=== PATIENT | female | born 1950 | race Caucasian/White ===

== ENCOUNTER 2017-01-16 11:37 | Emergency (ER) | payer MEDICARE ==
[~2017-01-16] VITALS: Ht 162.6 cm; Wt 61.2 kg
[~2017-01-16 11:37] MED LIST: ASPIRIN CHILDRE81 M1 PO; NEXIUM20 MG PO; PHENERGAN25 M3 PO; PRILOSEC20 M1 PO
--- NOTE | 2017-01-16 11:56 | Emergency Room Report ---
History of Present Illness Time Seen by MD Rodarte Presenting Problem in Triage Pt arrived:Walked Presenting Problem:PT WITH HISTORY OF HERNIA AND HAS BEEN HAVING ONGOING ISSUES WITH SINCE 2012; SAW HER PCP THIS WEEK AND WAS ADVISED TO BEGIN A NEW PPI MED; PT IS STATING SHE IS NERVOUS AND SOA AND DOESN' KNOW IF ITS THE HERNIA MAKING HER WEAK OR IF WORSE; CARDIAC ISSUES. 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 N Clinical Suspician of Infection? N Mental Status: 1 - Regular (Normal Baseline) Sepsis Risk:Low Sepsis Risk Have you (or family members/close friends) recently traveled outside the [place]? N If Yes, where/when: Have you had exposure to infectious disease within the past month? TB? Other? Specify: Comment The patient complains of her hiatal hernia bothering her. She has a long history of problems with it. She says it has been bothering her a lot for the past 2 weeks, almost continually. She has discomfort in her lower sternal area. It is exacerbated after eating, approximately 2 hours after she eats. This morning, she says that she was shaky and short of air with her symptoms. Symptoms are also exacerbated by standing and moving around, improved with rest. She does not have abdominal pain. She does have nausea, but no vomiting. She says when the pain gets severe it makes her feel like she is going to pass out. She saw her PCP couple of days ago and was prescribed Protonix. She has had a couple of doses. She has been taking Tums but not in the past week and a half. She tried Gaviscon as well. None of that seemed to help. She says she was admitted for the same symptoms in June 2016. She has had an EGD, but does not remember how many years ago it was. She says she's been diagnosed with H. pylori and was treated for that. ALLERGIES Coded Allergies: No Known Allergies (01/16/17) Home Medications Reported Medications Aspirin 81 MG PO DAILY PROMETHAZINE HCL (Phenergan 25MG Tab (Geq)) 25 MG PO NEEDED Esomeprazole Magnesium (Nexium) 20 MG PO DAILY History Medical History General CAD? No Angina: No PR: No Hypertension? No Hyperlipidemia? No CHF? No DVT? No PE? No COPD? No Asthma? No Anemia? No GERD? No Gastric ulcers? No GI Bleed? No Hernia? No Thyroid Problems? No Hypothyroidism? No CVA? No Seizures? No Diabetes? No Renal Insuffiency? No End Stage Renal Disease? No UTI? No Stones? No BPH? No GB Disease: Yes Nephritic Syndrome? No Asplenia? No Hepatitis? No Arthritis? No Migraines? No Cataracts? No Glaucoma? No MRSA? No HIV? No TB? No Anxiety? No Depression? No Cancer? No More? No Immunization Hx Ped.Immunizations UTD Yes DT/Tetanus Unknown Flu 2012-FSN Pneumonia Refuses Surgical Hx Previous Surgery?Y LAP RACHEL-2005 R EAR Family History Family Hx Diabetes No CAD No Hypertension No Hyperlipidemia No Cancer No TB No Social History Smoking Hx Smoker: Never Smoker Tobacco: No Type N/A Are you/the child exposed to second-hand smoke: No Alcohol Alcohol: No Additionial History Additional History Records reviewed. Admitted in June 2016 for the same symptoms. She had a workup including a Myoview stress test and echocardiogram which were negative. Dr. Hebert indicates that she has a suspected hiatal hernia. Her last CT scan of the abdomen was in 2012, no hiatal hernia seen at that time. No hiatal hernia seen on her chest x-ray in June. No record of EGD at this facility available on the medical record. Review of Systems All Other Systems Reviewed and Negative Constitutional denies fever, weakness Respiratory shortness of breath Cardiovascular chest pain Gastrointestinal denies abdominal pain, nausea, denies vomiting Physical Exam Vital Signs Vital Signs Date Time Temp Pulse Resp B/P Pulse O2 O2 Flow FiO2 Ox Delivery Rate 01/16 1341 98.0 83 18 165/91 99 01/16 1256 83 18 165/91 99 01/16 1145 98.0 83 18 160/100 99 General Appearance no apparent distress, Anxious Eye Exam - bilateral eye normal exam, bilateral eye PERRL, bilateral eye EOMI Ear, Nose, Throat hearing grossly normal, normal ENT inspection Neck normal inspection, non-tender, supple, full range of motion Respiratory Status Yes: trachea midline, chest symmetrical, non tender chest. No: respiratory distress. Lung Sounds bilateral: normal breath sounds, lungs clear. 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 No Results/Orders Laboratory Tests 01/16/17 1155: Sodium 140, Potassium 3.7, Chloride 103, Carbon Dioxide 28, BUN 13, Creatinine 1.0, Estimated Creat Clear 53, Estimated GFR (MDRD) 55 L, Glucose 92, Calcium 9.8, Total Bilirubin 2.1 H, AST 16, ALT 16, Alkaline Phosphatase 117 H, Creatine Kinase 62, CK-MB (CK-2) Rel Index 2.1, CK and CKMB Interp 1.3, Troponin I < 0.02, Total Protein 8.0, Albumin 4.2, Globulin 3.8 H, Albumin/Globulin Ratio 1.1, Amylase 53, Lipase 161, WBC 5.4, RBC 4.96, Hgb 14.5, Hct 42.3, MCV 85.1, RDW 12.2, Plt Count 323, MPV 7.3 L, Gran % 56.2, Gran # 3.0, Lymphocytes % 31.9, Monocytes % 8.6, Eosinophils % 2.3, Basophils % 1.0, Lymphocytes # 1.7, Monocytes # 0.5, Eosinophils # 0.1, Basophils # 0.1, PUBS MCHC 34.1, MCH 29.1 Current Medication Orders Sig/Juan Start time Last Medication Dose Route Stop Time Status Admin Famotidine 0 .STK-MED ONE 01/16 1258 DC IV Sodium Chloride 0 .STK-MED ONE 01/16 1257 DC IV Famotidine 20 MG ONCE ONE 01/16 1230 DC 01/16 IV 01/16 1231 1301 Sodium Chloride 8 ML ONCE ONE 01/16 1230 DC 01/16 IV 01/16 1231 1303 Sodium Chloride 10 ML PRN PRN 01/16 1200 DCD 01/16 IV 01/17 1148 1303 Orders Procedure Date/time Status ELECTROCARDIOGRAM REQUEST 01/16 1149 Active IV SALINE LOCK 01/16 114 Active URINALYSIS/COMPLETE 01/16 114 Active LIPASE 01/16 114 Complete CBC WITH AUTO DIFF 01/16 114 Complete CARDIAC ENZYMES 01/16 1149 Complete CHEM 12 PROFILE 01/16 1149 Complete AMYLASE 01/16 114 Complete 12 LEAD EKG-ACACIA (INITIAL) 01/16 UNK Active CM/EKG CM/EKG Comments EKG interpreted by Yovany Bone MD: Rhythm: sinus Rate: 69 Oxbow: normal Ectopy: none Conduction: normal ST Segment Changes: none T Wave Changes: none Q Waves: none No evidence of acute ischemia or injury Baseline wander present, but I consider the EKG adequate for accurate interpretation. Progress - 12:40 PM: The patient states symptoms have passed. Discussed records review and results. She now recalls that her EGD and a colonoscopy were done at [facility] in [place], she does not remember the year. she recalls that a hiatal hernia was diagnosed at that time as well as H. pylori. 12:44 PM: Discussed with Dr. Hebert. Discharge patient and have her follow up at 10 AM tomorrow at her scheduled appointment. No change in treatment at this time. Departure Departure Disposition DC Home or Self Care(routine) Clinical Impression Primary Impression: Chest pain Qualifiers: Chest pain type: precordial pain Qualified Code: R07.2 - Precordial pain Condition STABLE Referrals Tiburcio Hebert MD (Family) Patient Instructions DI for Atypical Chest Pain, DI for Hiatal Hernia Additional Instructions Continue current treatment. Keep your appointment with Dr. Hebert tomorrow at 10 AM. Additional instructions for CHEST PAIN: See your physician as soon as possible for further evaluation. Return immediately if worsening chest pain, vomiting, shortness of breath, fever, coughing of blood. ED Critical Care Critical Care No at 1450
--- OUTSIDE RECORDS SUMMARY | 2017-01-16 11:57 | External Medical Summary Rpt | CCD ---
Demographics Preferred Language Greenlandic Marital Status Unknown Yazidi Affiliation Unknown Race Unknown Ethnic Group Unknown Author Author , CANDACE MARIA Address Unknown Phone Immunization No patient found.
--- OUTSIDE RECORDS SUMMARY | 2017-01-16 11:57 | External Medical Summary Rpt | CCD ---
Author Author , CANDACE MARIA Address Unknown Phone [email or web address] Care Team Providers Care Millinery Salesperson Name Role Phone Tiburcio Hebert MD, Unavailable Unavailable Tiburcio Hebert MD Purpose Continuity of Care Document - 12-30-2012 through 2016 Problems Code Diagnosis DOS Provider Status 558.9 558.9 12-31-2012 [facility] IT NEC 787.01 787.01 12-31-2012 [place] NAUSEA WITH [facility] 787.91 787.91 12-31-2012 [place] DIARRHEA [facility] R07.9 CHEST PAIN, UNSPECIFIED Allergies, Adverse Reactions, Alerts Type Allergy to substance Drug Allergy Propensity to adverse reactions to food Adverse Reaction to Substance Substance Reaction Severity INGREDIENT: NO KNOWN Unknown Unknown - NO KNOWN DRUG ALLERGY No Known Drug Unknown Unknown Allergies - Nkda ORANGE JUICE (FOOD) BURNING SENSATION Unknown Medications Na ND Rx Da Fi Fi Am Da Di Ph RX Ph St me C No te ll ll ou ys ag ar # ys at rm s nt no ma ic us Or Da si cy ia de te s n re d SO 00 11 1 No DI 40 -1 UM 97 2- Lo 98 20 ng CH 30 13 er LO 9 RI Ac DE ti ve 0. 9% SO VICTORINO TI ON Sa 63 11 1 No li 80 -1 ne 70 2- Lo 10 20 ng Fl 07 13 er us 5 h Ac 10 ti ML ve Sy ri ng e ON 00 11 0 No DA 64 -1 NS 16 2- Lo ET 08 20 ng RO 02 13 er N 5 HC Ac L ti 4 ve MG /2 ML AL WV 00 11 0 No OM 64 -1 ET 11 2- Lo KAHN 49 20 ng ZI 53 13 er NE 5 Ac 25 ti ve MG /M L AM PU L Me 51 11 0 No tr 07 -1 on 90 2- Lo id 12 20 ng az 62 13 er ol 0 e Ac 50 ti 0M ve G Ta bl et WV 00 11 1 No OT 00 -1 ON 80 2- Lo IX 92 20 ng 35 13 er IV 5 Ac 40 ti ve MG AL Vital Signs 12-31-2012 16:30 Name Value Interpretat Reference Comment ion Range Body 98.4 [degF] Temperature BP 61 mm[Hg] Diastolic BP Systolic 123 mm[Hg] Heart 82 /min Rate/Pulse Respiratory 18 /min Rate 12-31-2012 16:00 Name Value Interpretat Reference Comment ion Range O2% 94 % 12-30-2012 23:58 Name Value Interpretat Reference Comment ion Range Height 162.56 cm Weight 63.957 kg Measured 12-30-2012 21:40 Name Value Interpretat Reference Comment ion Range Body 98 [degF] Temperature BP 87 mm[Hg] Diastolic BP Systolic 141 mm[Hg] Heart 108 /min Rate/Pulse O2% 97 % Respiratory 18 /min Rate Weight 00 [oz_av] Measured Results Labs Lab Lab Date Result Refere Interp Status Commen Order Detail nces retati t Range on BASIC METABOLIC PANEL (12-31-2012 06:10) Glucose 92 74-106 complet 013 mg/dL ed Bld-mCn 06:10 c BUN 14 7-18 complet Bld-mCn 013 mg/dL ed c 06:10 Creat 1.1 0.6-1.0 complet SerPl-m 013 mg/dL ed Cnc 06:10 ESTIMAT 54 50-200 complet ED 013 ML/MIN ed CREATIN 06:10 INE CLEARAN CE GFR 50 59- complet (ESTIMA 013 ML/MIN ed HARSH) 06:10 Sodium 12-31- 145 136-145 complet SerPl-s 013 mmoL/L ed Cnc 06:10 Potassi 4.1 3.5-5.1 complet um 013 mmoL/L ed SerPl-s 06:10 Cnc Chlorid 107 98-107 complet e 013 mmoL/L ed SerPl-s 06:10 Cnc CO2 28 21.0-32 complet SerPl-s 013 mmoL/L .0 ed Cnc 06:10 Calcium 12-31- 8.4 8.5-10. complet 013 mg/dL 1 ed SerPl-m 06:10 Cnc CBC with AUTO DIFF (12-31-2012 06:10) WBC # 11-13-2 4.0 4.8-10. complet Bld 013 K/MM3 8 ed Auto 06:10 RBC # 11-13-2 4.60 4.2-5.4 complet Bld 013 M/mm3 ed Auto 06:10 Hgb 11-13-2 13.3 12.2-16 complet Bld-mCn 013 g/dL .2 ed c 06:10 Hct Fr 11-13-2 39.8 % 37.0-47 complet Bld 013 .0 ed 06:10 MCV RBC 11-13-2 86.5 fl 82.2-97 complet 013 .8 ed 06:10 MCH RBC 11-13-2 28.8 pg 27-31.2 complet Qn 013 ed Auto 06:10 MEAN 11-13-2 33.3 31.8-35 complet CORPUSC 013 g/dl .4 ed ULAR 06:10 HGB CONC RDW RBC 11-13-2 14.1 % 11.5-17 complet Auto 013 .5 ed 06:10 Platele 11-13-2 274 142-424 complet t Bld 013 K/mm3 ed Ql 06:10 Manual MEAN 11-13-2 7.6 fl 7.4-10. complet PLATELE 013 4 ed T 06:10 VOLUME Granulo 11-13-2 68.7 % 37.0-80 complet cytes 013 .0 ed Fr Bld 06:10 Auto LYMPH % 11-13-2 20.6 % 10-50.0 complet 013 ed 06:10 Monocyt 11-13-2 10.1 % 1.7-9.3 complet es Fr 013 ed Bld 06:10 Auto Eosinop 11-13-2 0.3 % 0.1-12. complet hil Fr 013 0 ed Bld 06:10 Auto Basophi 11-13-2 0.3 % 0.1-2.0 complet ls Fr 013 ed Bld 06:10 Auto Granulo 11-13-2 2.8 1.8-7.8 complet cytes # 013 K/mm3 ed Bld 06:10 Auto Lymphoc 11-13-2 0.8 0.7-4.5 complet ytes Fr 013 K/mm3 ed Bld 06:10 Auto Monocyt 11-13-2 0.4 0.1-1.0 complet es # 013 K/mm3 ed Bld 06:10 Auto Eosinop 11-13-2 0.0 0.0-0.4 complet hil # 013 K/mm3 ed Bld 06:10 Auto Basophi 11-13-2 0.0 0-0.2 complet ls # 013 K/MM3 ed Bld 06:10 Auto COMPREHENSIVE METABOLIC PANEL (12-30-2012 21:55) Glucose 11-12-2 169 74-106 complet 013 mg/dL ed Bld-mCn 21:55 c BUN 11-12-2 15 7-18 complet Bld-mCn 013 mg/dL ed c 21:55 Creat 11-12-2 1.2 0.6-1.0 complet SerPl-m 013 mg/dL ed Cnc 21:55 ESTIMAT 11-12-2 50 50-200 complet ED 013 ML/MIN ed CREATIN 21:55 INE CLEARAN CE GFR -12-2 46 59- complet (ESTIMA 013 ML/MIN ed HARSH) 21:55 Sodium 11-12-2 139 136-145 complet SerPl-s 013 mmoL/L ed Cnc 21:55 Potassi 11-12-2 3.9 3.5-5.1 complet um 013 mmoL/L ed SerPl-s 21:55 Cnc Chlorid 11-12-2 103 98-107 complet e 013 mmoL/L ed SerPl-s 21:55 Cnc CO2 11-12-2 24 21.0-32 complet SerPl-s 013 mmoL/L .0 ed Cnc 21:55 Calcium 11-12-2 9.1 8.5-10. complet 013 mg/dL 1 ed SerPl-m 21:55 Cnc Prot 11-12-2 8.1 6.4-8.2 complet SerPl-m 013 gm/dL ed Cnc 21:55 Albumin 11-12-2 4.1 3.4-5.0 complet 013 gm/dL ed SerPl-m 21:55 Cnc Globuli 11-12-2 4.0 1.3-3.2 complet n 013 gm/dL ed Ser-mCn 21:55 c Albumin 11-12-2 1.0 UNK 1.1-1.8 complet /Glob 013 ed SerPl-m 21:55 Rto Bilirub 11-12-2 1.9 0.2-1.0 complet 013 mg/dL ed SerPl-m 21:55 Cnc AST 11-12-2 32 U/L 15-37 complet SerPl-c 013 ed Cnc 21:55 ALT 11-12-2 50 U/L 30-65 complet SerPl-c 013 ed Cnc 21:55 ALP 11-12-2 159 U/L 50-136 complet SerPl-c 013 ed Cnc 21:55 Amylase SerPl-cCnc (12-30-2012 21:55) Amylase 11-12-2 44 U/L 25-115 complet 013 ed SerPl-c 21:55 Cnc LIPASE (12-30-2012 21:55) LIPASE 11-12-2 57 U/L 73-393 complet 013 ed 21:55 CBC with AUTO DIFF (12-30-2012 21:55) WBC # 11-12-2 6.6 4.8-10. complet Bld 013 K/MM3 8 ed Auto 21:55 RBC # 11-12-2 5.16 4.2-5.4 complet Bld 013 M/mm3 ed Auto 21:55 Hgb 11-12-2 15.4 12.2-16 complet Bld-mCn 013 g/dL .2 ed c 21:55 Hct Fr 11-12-2 44.8 % 37.0-47 complet Bld 013 .0 ed 21:55 MCV RBC 11-12-2 86.9 fl 82.2-97 complet 013 .8 ed 21:55 MCH RBC 11-12-2 29.8 pg 27-31.2 complet Qn 013 ed Auto 21:55 MEAN 11-12-2 34.2 31.8-35 complet CORPUSC 013 g/dl .4 ed ULAR 21:55 HGB CONC RDW RBC 11-12-2 14.4 % 11.5-17 complet Auto 013 .5 ed 21:55 Platele 11-12-2 295 142-424 complet t Bld 013 K/mm3 ed Ql 21:55 Manual MEAN 11-12-2 7.7 fl 7.4-10. complet PLATELE 013 4 ed T 21:55 VOLUME Granulo 11-12-2 88.8 % 37.0-80 complet cytes 013 .0 ed Fr Bld 21:55 Auto LYMPH % 11-12-2 6.4 % 10-50.0 complet 013 ed 21:55 Monocyt 11-12-2 3.9 % 1.7-9.3 complet es Fr 013 ed Bld 21:55 Auto Eosinop 11-12-2 0.7 % 0.1-12. complet hil Fr 013 0 ed Bld 21:55 Auto Basophi 11-12-2 0.2 % 0.1-2.0 complet ls Fr 013 ed Bld 21:55 Auto Granulo 11-12-2 5.9 1.8-7.8 complet cytes # 013 K/mm3 ed Bld 21:55 Auto Lymphoc 11-12-2 0.4 0.7-4.5 complet ytes Fr 013 K/mm3 ed Bld 21:55 Auto Monocyt 11-12-2 0.3 0.1-1.0 complet es # 013 K/mm3 ed Bld 21:55 Auto Eosinop 11-12-2 0.1 0.0-0.4 complet hil # 013 K/mm3 ed Bld 21:55 Auto Basophi 11-12-2 0.0 0-0.2 complet ls # 013 K/MM3 ed Bld 21:55 Auto Encounters Encounter Start End Date Code Location Performer Type Date Inpatient IMP Patrice Hebert MD ([place]) 3 22:08 3 00:01 [facility]
--- OUTSIDE RECORDS SUMMARY | 2017-01-16 11:57 | External Medical Summary Rpt | CCD ---
Author Author , CANDACE MARIA Address Unknown Phone [email or web address] Care Team Providers Care Conveyor Monitor Name Role Phone Tiburcio Hebert MD, Unavailable Unavailable Tiburcio Hebert MD Purpose Continuity of Care Document - 12-30-2012 through 2016 Problems Code Diagnosis DOS Provider Status 558.9 558.9 12-31-2012 [facility] IT NEC 787.01 787.01 12-31-2012 [place] NAUSEA WITH [facility] 787.91 787.91 12-31-2012 [place] DIARRHEA [facility] R07.9 CHEST PAIN, UNSPECIFIED Allergies, Adverse Reactions, [...] ti 4 ve MG /2 ML AL SC 00 11 0 No OM 64 -1 ET 11 2- Lo KAHN 49 20 ng ZI 53 13 er NE 5 Ac 25 ti ve MG /M L AM PU L Me 51 11 0 No tr 07 -1 on 90 2- Lo id 12 20 ng az 62 13 er ol 0 e Ac 50 ti 0M ve G Ta bl et SC 00 11 1 No OT 00 -1 [...] Hebert MD ([place]) 3 22:08 3 00:01 [facility]
--- OUTSIDE RECORDS SUMMARY | 2017-01-16 11:57 | External Medical Summary Rpt | CCD ---
Author Author , CHANDLER MARIA Address Unknown Phone [email or web address] Care Team Providers Care Mid Level Business Analyst Name Role Phone [facility], Unavailable Unavailable [facility] Purpose Continuity of Care Document - 12-24-2013 through 2016 Problems Code Diagnosis DOS Provider Status [id number] ESOPHAGEAL 12-24-2013 [facility] [id number] OSTEOARTHRO 12-24-2013 [facility] S UNSPEC PHYSICIANS WHETHER GROUP GEN/LOC UNSPEC SITE [id number] NEED 12-24-2013 [facility] PROPHYLACTI PHYSICIANS C GROUP VACCINATION &INOCULATIO N FLU
--- OUTSIDE RECORDS SUMMARY | 2017-01-16 11:57 | External Medical Summary Rpt | CCD ---
Author Author , CHANDLER MARIA Address Unknown Phone [email or web address] Team Providers Care Tower Observer Name Role Phone [facility], Unavailable Unavailable [facility] Purpose Continuity of Care Document - 12-24-2013 through 2016 Problems Code Diagnosis DOS Provider Status [id number] ESOPHAGEAL 12-24-2013 [facility] [id number] OSTEOARTHRO 12-24-2013 [facility] S UNSPEC PHYSICIANS WHETHER GROUP GEN/LOC UNSPEC SITE [id number] NEED 12-24-2013 [facility] PROPHYLACTI PHYSICIANS C GROUP VACCINATION &INOCULATIO N FLU
--- OUTSIDE RECORDS SUMMARY | 2017-01-16 11:57 | External Medical Summary Rpt ---
Author Author PAVELADDY Ibarra, [employer] Organization [employer] Address Unknown Phone Unavailable Results CBC W Auto Differential panel in Blood Observa Value Referen Units Interpr Notes Date tion ce etation Range Basophils 0 - 0.2 K/MM3 Normal No July 11 informati 2016 6:11 [#/volume on in AM ] in source Blood by data Automated count Basophils 0.1 - 2.0 % Normal No July 11 informati 2017 6:11 leukocyte on in AM s in source Blood by data Automated count Eosinophi 0.0 - 0.4 K/mm3 Normal No July 11 ls informati 2016 6:11 [#/volume on in AM ] in source Blood by data Automated count Eosinophi 0.1 - % Normal No July 11 ls/100 12.0 informati 2017 6:11 leukocyte on in AM s in source Blood by data Automated count Granulocy 1.8 - 7.8 K/mm3 Normal No July 11 ed informati 2017 6:11 [#/volume on in AM ] in source Blood by data Automated count Granulocy 37.0 - % Normal No July 11 ed/100 80.0 informati 2017 6:11 leukocyte on in AM s in source Blood by data Automated count Hematocri 37.0 - % Low No July 11 t [Volume 47.0 informati 2017 6:11 on in AM Fraction] source of Blood data Hemoglobi 12.2 - g/dL Low No July 11 n 16.2 informati 2017 6:11 [Mass/vol on in AM ume] in source Blood data Lymphocyt 0.7 - 4.5 K/mm3 Normal No July 11 es informati 2017 6:11 [#/volume on in AM ] in source Unspecifi data ed specimen by Automated count Lymphocyt 10 - 50.0 % Normal No July 11 es informati 2017 6:11 [#/volume on in AM ] in source Unspecifi data ed specimen by Automated count Erythrocy 27 - 31.2 pg Normal No July 11 te mean informati 2017 6:11 corpuscul on in AM ar source hemoglobi data n [Entitic mass] Erythrocy 31.8 - g/dl Normal No July 11 te mean 35.4 informati 2016 6:11 corpuscul on in AM ar source hemoglobi data n concentra tion [Mass/vol ume] by Automated count Erythrocy 82.2 - fl Normal No July 11 te mean 97.8 informati 2016 6:11 corpuscul on in AM ar volume source [Entitic data volume] by Automated count Monocytes 0.1 - 1.0 K/mm3 Normal No July 11 informati 2016 6:11 [#/volume on in AM ] in source Blood by data Automated count Monocytes 1.7 - 9.3 % Normal No July 11 /100 informati 2017 6:11 leukocyte on in AM s in source Blood by data Automated count Platelet 7.4 - fl Low No July 11 mean 10.4 informati 2016 6:11 volume on in AM [Entitic source volume] data in Blood by Automated count Platelets 142 - 424 K/mm3 Normal No July 11 informati 2016 6:11 [#/volume on in AM ] in source Blood data Erythrocy 4.2 - 5.4 M/mm3 Low No July 11 ed informati 2017 6:11 [#/volume on in AM ] in source Amniotic data fluid Erythrocy 11.5 - % Normal No July 11 te 17.5 informati 2016 6:11 distribut on in AM ion width source [Entitic data volume] by Automated count Leukocyte 4.8 - K/MM3 Normal No July 11 s 10.8 informati 2016 6:11 [#/volume on in AM ] in source Blood data Amylase [Enzymatic activity/volume] in Serum or Plasma Observa Value Referen Units Interpr Notes Date ti ce etation Range Amylase 25 - 115 U/L Normal No July 10 [Enzymati informati 2016 c on in 10:49 PM activity/ source volume] data in Serum or Plasma Lipase [Enzymatic activity/volume] in Serum or Plasma Observa Value Referen Units Interpr Notes Date ti ce etation Range Lipase 73 - 393 U/L Normal No July 10 [Enzymati informati 2016 c on in 10:49 PM activity/ source volume] data in Serum or Plasma CBC W Auto Differential panel in Blood Observa Value Referen Units Interpr Notes Date ti ce etation Range Basophils 0 - 0.2 K/MM3 Normal No July 10 informati 2016 7:45 [#/volume on in PM ] in source Blood by data Automated count Basophils 0.1 - 2.0 % Normal No July 10 informati 2016 7:45 leukocyte on in PM s in source Blood by data Automated count Eosinophi 0.0 - 0.4 K/mm3 Normal No July 10 ls informati 2016 7:45 [#/volume on in PM ] in source Blood by data Automated count Eosinophi 0.1 - % Normal No July 10 ls/100 12.0 informati 2016 7:45 leukocyte on in PM s in source Blood by data Automated count Granulocy 1.8 - 7.8 K/mm3 Normal No July 10 ed informati 2016 7:45 [#/volume on in PM ] in source Blood by data Automated count Granulocy 37.0 - % Normal No July 10 ed/100 80.0 informati 2016 7:45 leukocyte on in PM s in source Blood by data Automated count Hematocri 37.0 - % Normal No July 10 t [Volume 47.0 informati 2016 7:45 on in PM Fraction] source of Blood data Hemoglobi 12.2 - g/dL Normal No July 10 n 16.2 informati 2016 7:45 [Mass/vol on in PM ume] in source Blood data Lymphocyt 0.7 - 4.5 K/mm3 Normal No July 10 es informati 2016 7:45 [#/volume on in PM ] in source Unspecifi data ed specimen by Automated count Lymphocyt 10 - 50.0 % Normal No July 10 es informati 2016 7:45 [#/volume on in PM ] in source Unspecifi data ed specimen by Automated count Erythrocy 27 - 31.2 pg Normal No July 10 te mean informati 2016 7:45 corpuscul on in PM ar source hemoglobi data n [Entitic mass] Erythrocy 31.8 - g/dl Normal No July 10 te mean 35.4 informati 2016 7:45 corpuscul on in PM ar source hemoglobi data n concentra tion [Mass/vol ume] by Automated count Erythrocy 82.2 - fl Normal No July 10 te mean 97.8 informati 2016 7:45 corpuscul on in PM ar volume source [Entitic data volume] by Automated count Monocytes 0.1 - 1.0 K/mm3 Normal No July 10 informati 2016 7:45 [#/volume on in PM ] in source Blood by data Automated count Monocytes 1.7 - 9.3 % Normal No July 10 / informati 2016 7:45 leukocyte on in PM s in source Blood by data Automated count Platelet 7.4 - fl Low No July 10 mean 10.4 informati 2016 7:45 volume on in PM [Entitic source volume] data in Blood by Automated count Platelets 142 - 424 K/mm3 Normal No July 10 informati 2016 7:45 [#/volume on in PM ] in source Blood data Erythrocy 4.2 - 5.4 M/mm3 Normal No July 10 ed informati 2016 7:45 [#/volume on in PM ] in source Amniotic data fluid Erythrocy 11.5 - % Normal No July 10 te 17.5 informati 2016 7:45 distribut on in PM ion width source [Entitic data volume] by Automated count Leukocyte 4.8 - K/MM3 Normal No July 10 s 10.8 informati 2016 7:45 [#/volume on in PM ] in source Blood data
--- OUTSIDE RECORDS SUMMARY | 2017-01-16 11:57 | External Medical Summary Rpt | CCD ---
Demographics Preferred Language German Marital Status Unknown Quaker Affiliation Unknown Race Unknown Ethnic Group Unknown Author Author , [employer] Address Unknown Phone Immunization No patient found.
[2017-01-16 12:10] LABS: LYMPH # 1.7 K/mm3 (0.7-4.5); LYMPH % 31.9 % (10-50.0)
[2017-01-16 12:16] LABS: HEMOGLOBIN 14.5 g/dL (12.2-16.2)
--- NOTE | 2017-01-16 12:20 | RADIOLOGY REPORT PS360 ---
CHEST(2 VIEWS-NOT PORTABLE) HISTORY: Chest pain CP ORDERING PHYSICIAN: Yovany Bone MD PATIENT AGE: 66 years COMPARISON: 07/10/2016 FINDINGS: The cardiomediastinal silhouette and pulmonary vascularity are within normal limits. The lungs are clear without infiltrates, suspicious nodules, or pleural effusions. No acute bony abnormalities. IMPRESSION: Negative chest, no acute finding
[2017-01-16 12:33] LABS: BUN 13 mg/dL (7-18)
[2017-01-16 12:34] LABS: GFR (ESTIMATED) 55 ML/MIN (59-)
[2017-01-16 13:41] VITALS: BP 165/91
== END 2017-01-16 13:42 | disposition home or self-care (01) ==
LOC: ER 11:37
PROVIDERS: Emergency Medicine
DX: R07.2 Precordial pain (principal); R06.02 Shortness of breath

== ENCOUNTER → 2017-01-22 | Outpatient (CLI) | payer MEDICARE ==
--- NOTE | 2017-01-22 12:16 | RADIOLOGY REPORT PS360 ---
UGI SERIES W/ AIR HISTORY: HIATAL HERNIA,EPIGASTRIC PAIN ORDERING PHYSICIAN: Tiburcio Hebert MD PATIENT AGE: 66 years COMPARISON: None FINDINGS: The esophagus, stomach, and duodenum have an unremarkable appearance. There is a small sliding hiatal hernia with mild gastroesophageal reflux. No ulcer or mass evident. No mucosal abnormalities apparent. There is normal peristalsis. The duodenal C-loop is nondisplaced. FLUOROSCOPY TIME : 1 minute and 46 seconds. IMPRESSION: Small sliding hiatal hernia with mild gastroesophageal reflux otherwise negative upper GI
--- NOTE | 2017-01-22 13:59 | RADIOLOGY REPORT PS360 ---
US RUQ-(ABD LTD)1ORGAN/QUAD/FU HISTORY: ELEVATED BILIRUBIN ORDERING PHYSICIAN: Tiburcio Hebert MD PATIENT AGE: 66 years COMPARISON: None FINDINGS: PANCREAS:Unremarkable. No obvious mass or abnormal fluid collection. No ductal dilatation LIVER:No focal liver lesions demonstrated. Homogeneous echogenicity. No intrahepatic biliary ductal dilatation evident RIGHT KIDNEY:Unremarkable. Normal size and echogenicity. No hydronephrosis GALLBLADDER:Status post cholecystectomy. Common bile duct is normal at 4 mm. IMPRESSION: Prior cholecystectomy otherwise negative right upper quadrant ultrasound.
== END ==
LOC: RAD 09:30
DX: R17 Unspecified jaundice (principal); K44.9 Diaphragmatic hernia without obstruction or gangrene; R10.13 Epigastric pain

== ENCOUNTER → 2017-01-30 | Outpatient (CLI) | payer MEDICARE ==
[2017-01-30 16:07] LABS: BILIRUBIN, INDIRECT 1.12 mg/dL (0-0.9)
== END ==
LOC: LAB 13:28
PROVIDERS: Surgery
DX: E80.7 Disorder of bilirubin metabolism, unspecified (principal)